=== PATIENT | female | born 1990 | race Caucasian/White ===

== ENCOUNTER 2017-03-20 02:00 | Inpatient (IN) | payer OTHER ==
[~2017-03-20] VITALS: Ht 160 cm; Wt 80.7 kg
--- NOTE | ~2017-03-20 | HP ---
Unit #: [id number] #: [id number] Patient: JENY SUTTON [id number] [place] [address] [id number] MR#: [id number] NAME: JENY SUTTON ROOM: 32 Age: 26 Sex: F Admission Date: 03/20/2017 : 1990 Attending Physician: Marilee Vidal M.D. Admitting Physician: Marilee Vidal M.D. Primary Care Physician: Generic Doctor Not In System HISTORY AND PHYSICAL HISTORY OF PRESENT ILLNESS The patient is a 26-year-old female admitted to [address] [place] [address] on 03/20/2017 for suicidal ideations and drug abuse. PAST MEDICAL HISTORY 1. Polysubstance use. 2. Ovarian cyst. 3. Migraines. PAST SURGICAL HISTORY The patient denies. SOCIAL HISTORY She is unemployed. She lives with her parents. She smokes one-half pack of cigarettes daily and has irregular drug use. FAMILY MEDICAL HISTORY Noncontributory. ALLERGIES Penicillin and sulfa. CURRENT MEDICATIONS control pills REVIEW OF SYSTEMS CONSTITUTIONAL: No fever or chills. HEENT: Denies any sore throat, ear pain or runny nose. CARDIOVASCULAR: Denies chest pain, irregular heart rhythm or palpitations. CHEST: Denies shortness of breath or cough. No hemoptysis. GASTROINTESTINAL: Denies nausea, vomiting, diarrhea or chronic constipation. ENDOCRINE: Denies history of increased thirst or urination. No recent significant weight loss or gain. GENITOURINARY: Denies dysuria, frequency, or hematuria. SKIN: Denies any rashes. HEMATOLOGIC: Denies history of increased bleeding or bruising. MUSCULOSKELETAL: Denies any hot, swollen joints. No generalized muscle pain. NEUROLOGIC: Denies problems with vision or speech. No frequent, severe headaches. No numbness, tingling or weakness in any extremities. Denies loss of bladder or bowel control. Unit #: [id number] #: [id number] Patient: JENY SUTTON PHYSICAL EXAM GENERAL: She is awake, alert and oriented in no acute distress. VITAL SIGNS: Temperature 97.4, heart rate 89, respiration 18, blood pressure 105/71. HEIGHT: 5 foot 3. WEIGHT: 175 pounds. SKIN: Warm and dry without rash or lesion. HEENT: Normocephalic. TMs not viewed. Oral and nasal passages clear. Conjunctivae clear. PERRLA. EOMs intact. NECK: Supple without lymphadenopathy or thyromegaly. HEART: Regular rate and rhythm without murmur. LUNGS: Clear. ABDOMEN: Soft, nontender. : Not done. EXTREMITIES: No evidence of cyanosis, clubbing or edema. Moves all without focal deficit. NEUROLOGICAL: Grossly within normal limits. Cranial Nerves: II: Visual gutierrez are intact. III, IV AND : Extraocular movements are intact. Pupils are equal, round and reactive to light. V: Facial sensation is grossly normal. VII: Facial movements and expression are normal. VIII: Auditory acuity grossly intact. IX, X: Uvula is midline. Phonation is normal. XI: Patient shrugs shoulders and turns head normally. XII: Tongue protrudes in the midline. Sensory and Motor Function: Sensory and motor sensation is grossly normal. Motor: moves all extremities well. IMPRESSION 1. Psychiatric admission. 2. Drug abuse. 3. Ovarian cyst. 4. Migraines. RECOMMENDATIONS Psychiatric per psychiatrist. MEDICAL: No contraindication to participate in facility activities. MEDICAL PROGNOSIS Good. MEDICAL CONDITION Stable. Dictated by... Anna Arevalo/ortega TD: 03/20/2017 23:55 JOB #: [id number] Unit #: [id number] #: [id number] Patient: JENY SUTTON HISTORY AND PHYSICAL Page 1 of 1 X PIO RODRIGUEZ APRN HISTORY AND PHYSICAL
--- NOTE | ~2017-03-20 | PN ---
Unit #: [id number] #: [id number] Patient: JENY SUTTON [id number] [facility] [address] [place] [address] [id number] I MR#: [id number] NAME: JENY SUTTON ROOM: 32 Age: 26 Sex: F Admission Date: 03/20/2017 : 1990 Attending Physician: Marilee Vidal M.D. Admitting Physician: Marilee Vidal M.D. Primary Care Physician: Generic Doctor Not In System [facility] PROGRESS NOTES DATE OF SERVICE: 03/21/2017 SUBJECTIVE Ms. Sutton is a 26-year-old white female who was seen today and chart was reviewed, and case was discussed with the staff. She remains anxious, withdrawn, depressed, and rather seclusive to herself as she was sitting on the bed and reports her depression is getting worse. So, she was just started on antidepressant yesterday and had her first dose last night without any tolerability issues. MENTAL STATUS EXAMINATION Young white female who was casually dressed with fair personal hygiene, appears to be in no acute distress or discomfort. She was awake and alert with intact orientation. Her mood was anxious with a congruent affect. She denies any suicidal or homicidal ideations. Her insight and judgment remain slightly impaired. TREATMENT PLAN 1. We will continue on current medications and treatment protocol. We will monitor her response to medications and make further adjustments as needed. 2. We will continue to follow up. Dictated by... Parker Talamantes/alphonse TD: 03/21/2017 11:41 JOB #: [id number] [facility] PROGRESS NOTES Page 1 of 1 X Marilee Vidal MD X PROGRESS NOTE
--- NOTE | ~2017-03-20 | PN ---
Unit #: [id number] #: [id number] Patient: JENY SUTTON [id number] [facility] [address] [place] [address] [id number] MR#: [id number] NAME: JENY SUTTON ROOM: 32 Age: 26 Sex: F Admission Date: 03/20/2017 : 1990 Attending Physician: Marilee Vidal M.D. Admitting Physician: Marilee Vidal M.D. Primary Care Physician: Generic Doctor Not In System [facility] PROGRESS NOTES DATE OF SERVICE 03/24/2017 DISCUSSION Ms. Sutton is a 26-year-old white female who was seen today. Chart was reviewed and case was discussed with the staff. She has been doing fairly well and has been showing improvement in depression and anxiety and has been cooperative with treatment recommendations. The patient has been taking the medications and tolerating them fairly well with no reported side effects. MENTAL STATUS EXAMINATION Young white female who is casually dressed with fair personal hygiene, appears to be in no acute distress or discomfort. She was awake and alert on interaction with intact orientation. Her mood is anxious with congruent affect. She denies any suicidal or homicidal ideations. Her insight and judgment remain slightly impaired. TREATMENT PLAN 1. We will continue her on her current medications and treatment protocol. We will monitor her response to the medications and make further adjustments as needed. 2. We will continue to follow up. Dictated by... Marilee Vidal M.D. IAA/bzg TD: 03/24/2017 12:06 JOB #: [id number] Unit #: [id number] #: [id number] Patient: JENY SUTTON PROGRESS NOTES Page 1 of 1 X Marilee Vidal MD X PROGRESS NOTE
--- NOTE | ~2017-03-20 | PN ---
Unit #: [id number] #: [id number] Patient: JENY SUTTON [id number] [facility] [address] [place] [address] [id number] I MR#: [id number] NAME: JENY SUTTON ROOM: 32 Age: 26 Sex: F Admission Date: 03/20/2017 : 1990 Attending Physician: Marilee Vidal M.D. Admitting Physician: Marilee Vidal M.D. Primary Care Physician: Generic Doctor Not In System [facility] PROGRESS NOTES DATE 03/22/2017 DISCUSSION Ms. Sutton is a 26-year-old white female who was seen today and chart was reviewed and case was discussed with the staff. She has been doing fairly well with no agitation, irritability and has been calm and cooperative with treatment recommendations as she has been taking medications and tolerating them fairly well with no reported side effects. MENTAL STATUS EXAMINATION Young white female who was casually dressed with fair personal hygiene and appears to be in no acute distress or discomfort. She was awake and alert on interaction with intact orientation. Her mood was anxious with congruent affect. She denies any suicidal or homicidal ideation. Her insight and judgement remains slightly impaired. TREATMENT PLAN 1. Will continue on current medications and treatment protocol. Will monitor her response to the medications and make further adjustments as needed. 2. Will continue to follow up. Dictated by... Parker Talamantes/bobbi TD: 03/22/2017 20:59 JOB #: [id number] Unit #: [id number] #: [id number] Patient: JENY SUTTON PROGRESS NOTES Page 1 of 1 X Marilee Vidal MD PROGRESS NOTE
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
--- NOTE | ~2017-03-20 | PN ---
Unit #: [id number] #: [id number] Patient: JENY SUTTON [id number] [facility] [address] [place] [address] [id number] MR#: [id number] NAME: JENY SUTTON ROOM: 32 Age: 26 Sex: F Admission Date: 03/20/2017 : 1990 Attending Physician: Marilee Vidal M.D. Admitting Physician: Marilee Vidal M.D. Primary Care Physician: Generic Doctor Not In System [facility] PROGRESS NOTES DATE OF SERVICE 03/23/2017 DISCUSSION Ms. Sutton is a 26-year-old white female who was seen today. Chart was reviewed and case was discussed with the staff. She has been anxious, withdrawn, and rather seclusive to herself and has been exhibiting some persistent depressive symptoms but no agitation or aggression has been noted. She has been taking the medications and tolerating them fairly well with no reported side effects. MENTAL STATUS EXAMINATION Young white female who is casually dressed with fair personal hygiene, appears to be in no acute distress or discomfort. She was awake and alert on interaction with intact orientation. Her mood is anxious with congruent affect. Her speech is slow and goal-directed. She denies any suicidal or homicidal ideations. Her insight and judgment remain slightly impaired. TREATMENT PLAN 1. We will continue her on her current medications and treatment protocol. We will monitor her response to the medications and make further adjustments as needed. 2. We will continue to follow up. Dictated by... Parker Talamantes/mindyg TD: 03/23/2017 14:58 JOB #: [id number] Unit #: [id number] #: [id number] Patient: JENY SUTTON PROGRESS NOTES Page 1 of 1 X Marilee Vidal MD PROGRESS NOTE
--- NOTE | ~2017-03-20 | DS ---
Unit #: [id number] #: [id number] Patient: JENY SUTTON [id number] [place] [address] [id number] I MR#: [id number] NAME: JENY USTTON ROOM: [facility] Age: 26 Sex: F Admission Date: 03/20/2017 : 1990 Discharge Date: 03/25/2017 Attending Physician: Marilee Vidal M.D. Primary Care Physician: Generic Doctor Not In System DISCHARGE SUMMARY IDENTIFICATION DATA Ms. Sutton is a 26-year-old single white female who is a resident of [place], [place], and was self-referred to the hospital on voluntary basis. DISCHARGE DIAGNOSES PSYCHIATRIC: Major depressive disorder, recurrent, moderate, without psychotic features. Methamphetamine dependence, moderate. Benzodiazepine abuse, moderate. Opiate abuse, moderate. MEDICAL: None. SENSORY: Mild psychosocial stressors. HISTORY OF PRESENT ILLNESS Same as in initial psychiatric evaluation. PAST PSYCHIATRIC HISTORY Same as in initial psychiatric evaluation. PAST MEDICAL HISTORY Same as in initial psychiatric evaluation. HOSPITAL COURSE The patient was admitted to the adult psychiatric unit at [facility] and was oriented to the hospital environment. Routine p.r.n. medications were initiated, and he was started back on her home medications. Remeron as an antidepressant was also initiated, and she was closely monitored. The patient was taking the medications regularly and was tolerating them fairly well and was able to show decent therapeutic response. As such it was decided that she will be discharged home. We will continue treatment on outpatient basis. DISCHARGE MEDICATIONS Remeron 15 mg at bedtime. CONDITION AT DISCHARGE Stable. PROGNOSIS Fair. Unit #: [id number] #: [id number] Patient: JENY SUTTON Dictated by... Marilee Vidal M.D. IAA/bzg TD: 03/25/2017 11:12 JOB #: [id number] DISCHARGE SUMMARY Page 1 of 1 X Marilee Vidal MD DISCHARGE SUMMARY
[2017-03-21 09:59] LABS: BASOPHIL% 0.3 % (0-2.5); EOSINOPHIL# 0.9 X10e3 (0-0.7); EOSINOPHIL% 10.6 % (0.0-7.0); HEMATOCRIT 41.7 % (35.0-45.0); HEMOGLOBIN 14.2 gm/dL (12.0-16.0); LYMPHOCYTE# 4.4 X10e3 (1.0-3.5); LYMPHOCYTE% 50.2 % (17.0-45.0); MEAN CELL VOLUME 89.2 FL (83-96); MEAN CORPUSCULAR HEMOGLOBIN 30.3 PG (28-34); MEAN CORPUSCULAR HGB CONC 33.9 g/dL (30-36); MEAN PLATELET VOLUME 7.5 FL (6.5-11.5); MONOCYTE# 0.7 X10e3 (0-1.0); MONOCYTE% 7.5 % (3.0-12.0); NEUTROPHIL# 2.7 X10e3 (1.5-7.1); NEUTROPHIL% 31.4 % (40-75); PLATELET COUNT 317 X10e3 (140-420); RED BLOOD COUNT 4.68 X10e (3.90-5.30); RED CELL DISTRIBUTION WIDTH 12.8 % (11.0-15.5); WHITE BLOOD COUNT 8.8 X10e3 (4.0-10.5)
[2017-03-21 10:05] LABS: ALBUMIN SERUM 4.1 g/dL (3.5-5.0); BILIRUBIN,TOTAL 0.6 mg/dL (0.2-2.0); BUN/CREATININE RATIO 21.42; CALCIUM SERUM 9.3 mg/dL (8.4-10.2); CREATININE SERUM 0.7 mg/dL (0.6-1.4); GLOM FILT RATE Estimated 120.4 mL/min (>60); POTASSIUM 4.1 mmol/L (3.5-5.1); PROTEIN TOTAL SERUM 6.8 g/dL (6.0-8.3)
[2017-03-21 10:11] LABS: DIFF IND YES
[2017-03-21 10:37] LABS: PLATELET ESTIMATE NORMAL (NORMAL)
== END 2017-03-25 10:18 | disposition home or self-care (01) | DRG 885 ==
LOC: P1S 06:10
PROVIDERS: Psychiatry & Neurology Psychiatry
DX: F33.1 Major depressive disorder, recurrent, moderate (principal); F11.20 Opioid dependence, uncomplicated; R45.851 Suicidal ideations; F15.20 Other stimulant dependence, uncomplicated; F13.20 Sedative, hypnotic or anxiolytic dependence, uncomplicated; Z88.0 Allergy status to penicillin; Z88.2 Allergy status to sulfonamides; F17.210 Nicotine dependence, cigarettes, uncomplicated
CPT/HCPCS: 80053; 84703; 85025